=== PATIENT | female | born 1995 | race Caucasian/White ===

== ENCOUNTER 2023-11-10 13:18 | Emergency (ER) | payer MEDICAID ==
[~2023-11-10] VITALS: Ht 165.1 cm; Wt 85.0 kg
[2023-11-10 13:19] VITALS: TEMP 98; O2SAT 100
[2023-11-10] MEDS ORDERED: CYCL10TA21 MT (14:44)
[2023-11-10] MEDS ORDERED: IBUP-2030 MT (14:44)
[2023-11-10] MEDS ORDERED: IBUPROFEN 800MG TABLET PO ONE (14:45)
[2023-11-10] MEDS: IBUPROFEN 400MG TABLET PO NR (15:25)
[2023-11-10] MEDS: CYCLOBENZAPRINE 10MG TABLET PO ONE (15:25)
[2023-11-10 15:45] VITALS: BP 111/72; PULSE 88; RESP 16
== END 2023-11-10 15:47 | disposition home or self-care (01) ==
LOC: ER 13:18
DX: S16.1XXA Strain of muscle, fascia and tendon at neck level, initial encounter (principal); V98.8XXA Other specified transport accidents, initial encounter; Y93.89 Activity, other specified; Y92.89 Other specified places as the place of occurrence of the external cause; Y99.8 Other external cause status
CPT/HCPCS: 99283